=== PATIENT | male | born 1995 | race African-American/Black ===

== ENCOUNTER 2019-11-10 21:35 | Emergency (ER) | payer OTHER ==
[~2019-11-10] VITALS: Ht 162.6 cm; Wt 68.5 kg
[2019-11-10] MEDS ORDERED: NORFLEX100 MG PO (22:40)
[2019-11-10] MEDS ORDERED: TRAMADOL 50 MG50 MG PO (22:40)
[2019-11-10] MEDS ORDERED: NAPROSYN500 MG PO (22:40)
[2019-11-10 22:48] VITALS: BP 127/70
== END 2019-11-10 22:52 | disposition home or self-care (01) ==
LOC: ER 21:35
DX: S46.911A Strain of unspecified muscle, fascia and tendon at shoulder and upper arm level, right arm, initial encounter (principal); F17.210 Nicotine dependence, cigarettes, uncomplicated; X50.1XXA Overexertion from prolonged static or awkward postures, initial encounter; Y93.89 Activity, other specified; Y92.89 Other specified places as the place of occurrence of the external cause; Y99.8 Other external cause status

== ENCOUNTER 2020-05-19 10:04 | Emergency (ER) | payer OTHER ==
[~2020-05-19] VITALS: Ht 172.7 cm; Wt 67.6 kg
[~2020-05-19 10:04] MED LIST: NAPROSYN500 MG PO; NORFLEX100 MG PO; TRAMADOL 50 MG50 MG PO
[2020-05-19] MEDS ORDERED: NORCO 10-325 T1 EACH PO (10:58)
[2020-05-19 11:30] VITALS: BP 165/64
== END 2020-05-19 11:28 | disposition home or self-care (01) ==
LOC: ER 10:04
DX: S82.52XA Displaced fracture of medial malleolus of left tibia, initial encounter for closed fracture (principal); F17.210 Nicotine dependence, cigarettes, uncomplicated; X50.1XXA Overexertion from prolonged static or awkward postures, initial encounter; Y93.67 Activity, basketball; Y92.89 Other specified places as the place of occurrence of the external cause; Y99.8 Other external cause status